=== PATIENT | female | born 1965 | race Hispanic/Latino ===

== ENCOUNTER → 2017-11-03 | Outpatient (CLI) | payer OTHER ==
[~2017-11-03] MED LIST: ACYCLOVIR; GABA-531 PO; MULT-1296 PO; VIT D PO
== END | disposition home or self-care (01) ==
LOC: RAH 12:25
PROVIDERS: ATTEND Physical Medicine & Rehabilitation
DX: M51.17 Intervertebral disc disorders with radiculopathy, lumbosacral region (principal); M47.26 Other spondylosis with radiculopathy, lumbar region
CPT/HCPCS: 72148

== ENCOUNTER 2017-11-29 06:38 | Day surgery (SDC) | payer OTHER ==
[~2017-11-29] VITALS: Ht 157.5 cm; Wt 79.9 kg
[~2017-11-29 06:38] MED LIST changes: -ACYCLOVIR; -GABA-531 PO; -MULT-1296 PO; +SODIUM CHLORIDE 0.9% 1000ML 1,000 ML IV ONE; -VIT D PO
[2017-11-29 06:59] LABS: BASOPHILS % (AUTO) 0.7 % (0.0-5.0); EOSINOPHILS % (AUTO) 4.9 % (0.0-8.0); HEMATOCRIT 43.6 % (36-48); LYMPHOCYTES % (AUTO) 51.8 % (21.0-51.0); MEAN CORPUSCULAR HGB CONC 33.4 g/dL (32.0-36.0); MEAN CORPUSCULAR VOLUME 83.9 fL (79-99); NEUTROPHILS % (AUTO) 35.6 % (40.0-77.0); PLATELET COUNT (AUTO) 238 K/uL (130-400); RED CELL DISTRIBUTION WIDTH 13.1 % (11.0-15.5)
[2017-11-29 07:14] LABS: CREATININE 0.7 mg/dL (0.5-1.5); POTASSIUM 3.9 mmol/L (3.5-5.1)
[2017-11-29 07:15] VITALS: BP 119/64
[2017-11-29] MEDS ORDERED: GABA-531 PO (07:29)
[2017-11-29] MEDS ORDERED: ACYCLOVIR (07:29)
[2017-11-29] MEDS ORDERED: PROPOFOL 10 MG/ML 20ML VIAL IV ONE (08:42)
[2017-11-29 08:49] VITALS: BP 123/100
[2017-12-27] MEDS ORDERED: MULT-1296 PO (11:24)
[2017-12-27] MEDS ORDERED: VIT D PO (11:24)
== END 2017-11-29 09:24 | disposition home or self-care (01) ==
LOC: DAH 06:38
PROVIDERS: ATTEND Surgery
DX: K44.9 Diaphragmatic hernia without obstruction or gangrene (principal); K21.9 Gastro-esophageal reflux disease without esophagitis; I10 Essential (primary) hypertension; E66.09 Other obesity due to excess calories; Z68.31 Body mass index [BMI] 31.0-31.9, adult; Z98.890 Other specified postprocedural states
CPT/HCPCS: 36415; 43235; 80048; 85025; A4606; J2704; J7030

== ENCOUNTER → 2017-12-13 | Outpatient (CLI) | payer OTHER ==
[~2017-12-13] VITALS: Ht 5.1 cm; Wt 81.5 kg
[~2017-12-13] MED LIST changes: +ACYCLOVIR; +GABA-531 PO; +MULT-1296 PO; -SODIUM CHLORIDE 0.9% 1000ML 1,000 ML IV ONE; +VIT D PO
== END ==
LOC: DTH 09:15
PROVIDERS: ATTEND Surgery
DX: E11.9 Type 2 diabetes mellitus without complications (principal); E66.09 Other obesity due to excess calories
CPT/HCPCS: 97802

== ENCOUNTER → 2017-12-27 | Outpatient (CLI) | payer OTHER | END | disposition home or self-care (01) | LOC: DTH 09:52 | PROVIDERS: ATTEND Surgery | DX: E11.9 Type 2 diabetes mellitus without complications (principal); E66.09 Other obesity due to excess calories | CPT/HCPCS: 97803 ==

== ENCOUNTER 2017-12-31 10:30 | Inpatient (IN) | payer OTHER, SELFPAY ==
[2017-12-27 10:57] LABS: EOSINOPHILS % (AUTO) 5.3 % (0.0-8.0); HEMATOCRIT 41.3 % (36-48); LYMPHOCYTES % (AUTO) 44.8 % (21.0-51.0); MEAN CORPUSCULAR HEMOGLOBIN 28.7 pg (27.0-33.0); MEAN CORPUSCULAR HGB CONC 33.8 g/dL (32.0-36.0); MEAN CORPUSCULAR VOLUME 84.9 fL (79-99); MONOCYTES % (AUTO) 8.4 % (3.0-13.0); NEUTROPHILS % (AUTO) 40.5 % (40.0-77.0); PLATELET COUNT (AUTO) 250 K/uL (130-400); RED BLOOD CELL COUNT(AUTO) 4.87 MIL/uL (4.00-5.50); RED CELL DISTRIBUTION WIDTH 13.5 % (11.0-15.5); WHITE BLOOD COUNT (AUTO) 4.3 K/uL (4.8-10.8)
[2017-12-27 10:58] VITALS: BP 135/62
[2017-12-27 11:09] LABS: CREATININE 0.6 mg/dL (0.5-1.5); POTASSIUM 4.3 mmol/L (3.5-5.1)
[2017-12-27 11:39] LABS: PARTIAL THROMBOPLASTIN TIME 28.5 SEC (26.3-35.5); PROTHROMBIN TIME 10.5 SEC (9.6-11.6)
[~2017-12-31] VITALS: Ht 158.8 cm; Wt 79.7 kg
[2018-01-03] VITALS (22 sets, daily range): BP systolic 118–156; BP diastolic 47–79
[2018-01-03] MEDS ORDERED: SUCCINYLCHOLINE 200MG/10ML SYR ONE ×2 (06:47→09:06)
[2018-01-03] MEDS ORDERED: LIDOCAINE PF 2% 5ML ABBOJECT ONE (06:47)
[2018-01-03] MEDS ORDERED: GLYCOPYRROLATE 0.2 MG/ML 5 ML VIAL ONE (06:47)
[2018-01-03] MEDS ORDERED: DEXAMETHASONE SOD PHOSPHATE 10MG/ML 1ML VIAL ONE (06:47)
[2018-01-03] MEDS ORDERED: MIDAZOLAM HCL 1 MG/ML 2ML VIAL ONE (06:48)
[2018-01-03] MEDS ORDERED: PROPOFOL 10 MG/ML 20ML VIAL IV ONE (06:48)
[2018-01-03] MEDS ORDERED: FENTANYL CITRATE PF 50 MCG/1 ML 2ML VIAL ONE ×2 (06:48→08:39)
[2018-01-03] MEDS ORDERED: ROCURONIUM BROMIDE 10MG/1ML 5ML VL ONE ×2 (06:50)
[2018-01-03] MEDS ORDERED: LACTATED RINGERS 1000ML 1,000 ML IV ONE (07:05)
[2018-01-03] MEDS: CEFAZOLIN SODIUM 1 GM VIAL ONE ×2 (07:25→08:30)
[2018-01-03] MEDS ORDERED: BUPIVACAINE/PF 0.5% 30ML VIAL ONE (07:31)
[2018-01-03] MEDS ORDERED: CALDOLOR 800MG+NS 250ML 250 ML IV ONE (08:58)
[2018-01-03] MEDS ORDERED: PHENYLEPHRINE HCL 10 MG/ML 1ML VIAL IV ONE (09:06)
[2018-01-03] MEDS ORDERED: ONDANSETRON HCL MDV 20ML 2 MG/ML VIAL ONE (09:07)
[2018-01-03] MEDS ORDERED: LIDOCAINE HCL 2% JELLY 5 ML ONE (09:17)
[2018-01-03] MEDS ORDERED: LIDOCAINE HCL 4% LTA SOL 4 ML VIAL ONE (09:17)
[2018-01-03] MEDS ORDERED: MORPHINE SULFATE 5 MG/ML VIAL IVP PRN (09:30)
[2018-01-03] MEDS ORDERED: ONDANSETRON HCL 4 MG/2 ML VIAL IVP PRN (09:30)
[2018-01-03] MEDS ORDERED: CEFAZOLIN 2GM / 50 ML 2 GM/50 ML BAG IV SCH (09:30)
[2018-01-03] MEDS ORDERED: MEPERIDINE-PF 25 MG/ML SYG ONE (09:57)
[2018-01-03] MEDS: LACTATED RINGERS 1000ML 1,000 ML IV SCH ×2 (12:42→17:50)
[2018-01-03] MEDS ORDERED: ONDANSETRON HCL MDV 20ML 2 MG/ML VIAL IVP PRN (15:00)
[2018-01-03] MEDS ORDERED: MORPHINE SULFATE 4 MG/1ML SYG ONE (17:31)
[2018-01-03] MEDS: CEFAZOLIN SODIUM 1 GM VIAL IVP SCH ×2 (17:36→17:49)
[2018-01-03] MEDS: FAMOTIDINE/PF 20 MG/2 ML VIAL IV SCH (20:35)
[2018-01-03] MEDS: ENOXAPARIN SODIUM 30 MG/0.3 ML SQ SCH (20:36)
[2018-01-04] VITALS: BP 150/77
[2018-01-04] MEDS ORDERED: CEFAZOLIN SODIUM 1 GM VIAL ONE (03:25)
[2018-01-04 04:00] VITALS: BP 148/72
[2018-01-04 05:38] LABS: BASOPHILS % (AUTO) 0.1 % (0.0-5.0); HEMATOCRIT 43.2 % (36-48); LYMPHOCYTES % (AUTO) 13.1 % (21.0-51.0); MEAN CORPUSCULAR HEMOGLOBIN 28.5 pg (27.0-33.0); MEAN CORPUSCULAR HGB CONC 33.9 g/dL (32.0-36.0); MONOCYTES % (AUTO) 7.4 % (3.0-13.0); NEUTROPHILS % (AUTO) 79.4 % (40.0-77.0); PLATELET COUNT (AUTO) 257 K/uL (130-400); RED BLOOD CELL COUNT(AUTO) 5.14 MIL/uL (4.00-5.50); RED CELL DISTRIBUTION WIDTH 13.7 % (11.0-15.5); WHITE BLOOD COUNT (AUTO) 10.7 K/uL (4.8-10.8)
[2018-01-04 05:43] LABS: CREATININE 0.7 mg/dL (0.5-1.5); POTASSIUM 3.7 mmol/L (3.5-5.1)
[2018-01-04 08:11] VITALS: BP 156/76
[2018-01-04] MEDS ORDERED: DIATR MEGLU/DIATRIZOATE SODIUM 30 ML BOTTLE ONE (09:49)
[2018-01-04] MEDS: ENOXAPARIN SODIUM 30 MG/0.3 ML SQ SCH (11:43)
[2018-01-04] MEDS: FAMOTIDINE/PF 20 MG/2 ML VIAL IV SCH (11:43)
[2018-01-04 11:47] VITALS: BP 138/75
[2018-01-04] MEDS ORDERED: ACETAMINOPHEN-CODEINE ELIXIR 5 ML UDCUP PO PRN (13:45)
[2018-01-04 16:48] VITALS: BP 152/87
[2018-01-04 20:00] VITALS: BP 144/76
== END 2018-01-04 22:10 | disposition home or self-care (01) | DRG 621 ==
LOC: DAHIP 01-03 06:41 → 4CH 01-03 10:43
PROVIDERS: ADMIT Surgery; ATTEND Surgery
PROC: 0DB64Z3 Excision of Stomach, Percutaneous Endoscopic Approach, Vertical (ICD-10-PCS; principal; 2018-01-03 08:18)
PROC: 0BQT0ZZ Repair Diaphragm, Open Approach (ICD-10-PCS; 2018-01-03 08:18)
PROC: 0WJP4ZZ Inspection of Gastrointestinal Tract, Percutaneous Endoscopic Approach (ICD-10-PCS; 2018-01-03 08:18)
DX: E66.01 Morbid (severe) obesity due to excess calories (principal); K21.9 Gastro-esophageal reflux disease without esophagitis; K44.9 Diaphragmatic hernia without obstruction or gangrene; Z68.31 Body mass index [BMI] 31.0-31.9, adult
CPT/HCPCS: 36415; 74240; 80048; 85025; 85610; 85730; 86850; 86900; 86901; 88307; 88342; 94760; A4218; A4606; J0330; J0690; J1100; J1650; J1741; J2001; J2175; J2250; J2270; J2370; J2704; J3010; J3490; J7030; J7120; Q9963

== ENCOUNTER → 2018-01-24 | Outpatient (CLI) | payer OTHER | END | disposition home or self-care (01) | LOC: RAH 09:48 | PROVIDERS: ATTEND Specialist | DX: Z12.31 Encounter for screening mammogram for malignant neoplasm of breast (principal) | CPT/HCPCS: 77067 ==

== ENCOUNTER 2018-02-01 00:53 | Emergency (ER) | payer OTHER ==
[2018-02-01] MEDS ORDERED: IOPAMIDOL-370 100 ML VIAL IV ONE ×2 (01:03→02:44)
[2018-02-01] MEDS ORDERED: KETOROLAC TROMETHAMINE 30MG/ML ONE (01:26)
[2018-02-01] MEDS ORDERED: SODIUM CHLORIDE 0.9% 1000ML 1,000 ML IV ONE (01:26)
[2018-02-01 02:49] LABS: BILIRUBIN,URINE Negative (NEGATIVE); COLOR,URINE Yellow (YELLOW); GLUCOSE, URINE (UA) Negative (NEGATIVE); KETONES,URINE >=160 mg/dL (NEGATIVE); LEUKOCYTE ESTERASE ,URINE Large (NEGATIVE); NITRATE,URINE Negative (NEGATIVE); OCCULT BLOOD,URINE Negative (NEGATIVE); PROTEIN,URINE Trace (NEGATIVE)
[2018-02-01 02:50] LABS: APPEARANCE,URINE SLIGHTLY CLOUDY (CLEAR)
[2018-02-01 02:58] LABS: BACTERIA,URINE Rare /HPF (None Seen); MUCUS,URINE Few LPF (None Seen); RBC,URINE 0-1 /HPF (0-1); SQUAMOUS EPITHELIAL CELL,UR Few /HPF (0-2)
== END 2018-02-01 04:55 | disposition home or self-care (01) ==
LOC: EDH 00:53
DX: S20.219A Contusion of unspecified front wall of thorax, initial encounter (principal); S19.80XA Other specified injuries of unspecified part of neck, initial encounter; E07.9 Disorder of thyroid, unspecified; V49.49XA Driver injured in collision with other motor vehicles in traffic accident, initial encounter; Y93.89 Activity, other specified; Y92.89 Other specified places as the place of occurrence of the external cause; Y99.8 Other external cause status
CPT/HCPCS: 70450; 71260; 72125; 74177; 81001; 93005; 96361; 96374; 99285; J1885; J7030; Q9967 ×2

== ENCOUNTER → 2020-05-07 | Outpatient (CLI) | payer OTHER ==
[~2020-05-07] MED LIST changes: -ACYCLOVIR; -GABA-531 PO; +IOHEXOL-350 75 ML VIAL IV ONE; -MULT-1296 PO; -VIT D PO
== END | disposition home or self-care (01) ==
LOC: RAH 08:28
PROVIDERS: ATTEND Family Medicine
DX: K57.30 Diverticulosis of large intestine without perforation or abscess without bleeding (principal); N20.0 Calculus of kidney; J98.11 Atelectasis; Z90.49 Acquired absence of other specified parts of digestive tract
CPT/HCPCS: 74178; Q9967

== ENCOUNTER → 2021-09-15 | Outpatient (CLI) | payer OTHER ==
[~2021-09-15] MED LIST changes: +ACYCLOVIR; +GABA-531 PO; -IOHEXOL-350 75 ML VIAL IV ONE; +MULT-1296 PO; +VIT D PO
== END | disposition home or self-care (01) ==
LOC: RAH 15:37
PROVIDERS: ATTEND Family Medicine
DX: Z12.31 Encounter for screening mammogram for malignant neoplasm of breast (principal)
CPT/HCPCS: 77067

== ENCOUNTER → 2022-10-09 | Outpatient (CLI) | payer OTHER | END | disposition home or self-care (01) | LOC: RAH 08:29 | PROVIDERS: ATTEND Family Medicine | DX: Z12.31 Encounter for screening mammogram for malignant neoplasm of breast (principal) | CPT/HCPCS: 77067 ==

== ENCOUNTER → 2023-10-21 | Outpatient (CLI) | payer OTHER | END | disposition home or self-care (01) | LOC: RAH 08:18 | PROVIDERS: ATTEND Family Medicine | DX: Z12.31 Encounter for screening mammogram for malignant neoplasm of breast (principal) | CPT/HCPCS: 77067 ==

== ENCOUNTER → 2023-11-10 | Outpatient (CLI) | payer OTHER | END | disposition home or self-care (01) | LOC: RAH 15:02 | PROVIDERS: ATTEND Internal Medicine | DX: D50.9 Iron deficiency anemia, unspecified (principal); M47.815 Spondylosis without myelopathy or radiculopathy, thoracolumbar region; Z90.49 Acquired absence of other specified parts of digestive tract | CPT/HCPCS: 74018 ==

== ENCOUNTER → 2024-02-04 | Outpatient (CLI) | payer OTHER | END | disposition home or self-care (01) | LOC: RAH 07:11 | PROVIDERS: ATTEND Internal Medicine Gastroenterology | DX: R93.3 Abnormal findings on diagnostic imaging of other parts of digestive tract (principal); D50.9 Iron deficiency anemia, unspecified | CPT/HCPCS: 78264; A9541 ==

== ENCOUNTER → 2024-10-23 | Outpatient (CLI) | payer OTHER ==
--- NOTE | 2024-10-23 11:39 | HMCIMG ---
SCREENING MAMMOGRAM REASON: Annual Exam COMPARISON: 10/21/2023 TECHNIQUE: CC and MLO views of the bilateral breasts were performed.CAD was performed as well. FINDINGS: Parenchymal density: The breasts are heterogeneously dense, which may obscure small masses. There are no focal mass lesions. There are no pathologic appearing calcifications. There is no evidence of architectural distortion or skin thickening. IMPRESSION: Normal screening mammogram The patient was entered into a reminder system with a target due date for their next mammogram. BI-RADS CATEGORY 1: NEGATIVE Recommend monthly self breast exam as well as annual clinical examination. A negative x-ray should not delay biopsy if a dominant or clinically suspicious mass is present, since 8-10% of cancers are not identified by mammography. Dense breasts particularly, may obscure an underlying neoplasm. Some of these may be detected clinically and therefore, clinical examination is an essential part of breast evaluation.
== END | disposition home or self-care (01) ==
LOC: RAH 11:05
PROVIDERS: ATTEND Family Medicine
DX: Z12.31 Encounter for screening mammogram for malignant neoplasm of breast (principal); R92.333 Mammographic heterogeneous density, bilateral breasts
CPT/HCPCS: 77067

== ENCOUNTER → 2025-08-24 | Outpatient (CLI) | payer OTHER ==
[~2025-08-24] MED LIST changes: +IBUP-2077 PO; +TAMS-55 PO
--- NOTE | 2025-08-24 17:38 | HMCIMG ---
X-RAY LUMBAR SPINE CLINICAL HISTORY: Back pain. COMPARISON: No prior imaging study available for comparison. TECHNIQUE: Anteroposterior and lateral views of the lumbar spine were obtained. FINDINGS: Loss of normal lumbar lordosis is seen, likely secondary to degenerative changes or paraspinal muscle spasm. Multilevel reduction in intervertebral disc spaces is noted, more pronounced at the L4???L5 and L5???S1 levels, with the L5???S1 level being the most affected. Multilevel anterolateral osteophyte formation is noted along the visualized lumbar vertebral margins. Mild facet joint arthropathy is seen at the lower lumbar levels. Vertebral body heights are maintained. No evidence of fracture, spondylolysis, or spondylolisthesis is seen. Visualized sacroiliac joints appear unremarkable. IMPRESSION: * Multilevel degenerative changes of the lumbar spine, with disc space narrowing and anterolateral osteophyte formation, most pronounced at L5???S1 level. * Loss of lumbar lordosis, likely secondary to degenerative change or muscle spasm. * Mild lower lumbar facet arthropathy. * No evidence of fracture, spondylolysis, or spondylolisthesis. * No prior imaging study available for comparison. /[place]
== END | disposition home or self-care (01) ==
LOC: RAH 14:42
PROVIDERS: ATTEND Internal Medicine
DX: M51.360 Other intervertebral disc degeneration, lumbar region with discogenic back pain only (principal); M48.061 Spinal stenosis, lumbar region without neurogenic claudication; M25.78 Osteophyte, vertebrae; M47.816 Spondylosis without myelopathy or radiculopathy, lumbar region; M40.46 Postural lordosis, lumbar region
CPT/HCPCS: 72100

== ENCOUNTER → 2025-08-31 | Outpatient (CLI) | payer OTHER ==
[2025-08-31 14:00] LABS: CREATININE 0.7 mg/dL (0.5-1.0); GLOMERULAR FILTR. RATE CALC 98.0 mL/min (>90); UREA NITROGEN, BLOOD 15.0 mg/dL (7-18)
== END | disposition home or self-care (01) ==
LOC: LAB 09:20
PROVIDERS: ATTEND Internal Medicine Gastroenterology
DX: R93.41 Abnormal radiologic findings on diagnostic imaging of renal pelvis, ureter, or bladder (principal)
CPT/HCPCS: 36415; 82565; 84520

== ENCOUNTER → 2025-09-14 | Outpatient (CLI) | payer OTHER ==
[~2025-09-14] MED LIST changes: +IOHEXOL-350 75 ML VIAL IV ONE
--- NOTE | 2025-09-15 09:01 | HMCIMG ---
EXAM: CT Abdomen and Pelvis with and without IV contrast CLINICAL HISTORY: Patient presents with abnormal radiologic findings on diagnostic imaging of renal pelvis, ureter, and cholelithiasis, with history of hysterectomy and gastric sleeve surgery. TECHNIQUE: Axial computed tomography images of the abdomen and pelvis with and without intravenous contrast. CONTRAST: Omnipaque 350 75 mL administered intravenously. COMPARISON: None. FINDINGS: LUNG BASES: The lung bases appear clear. No pleural effusions are seen. LIVER: Borderline hepatomegaly. Mild hepatic steatosis. GALLBLADDER AND BILE DUCTS: Status post cholecystectomy. Cystic structure in the gallbladder fossa which may represent gallbladder remnant or focal ductal dilatation. No radioopaque gallstones or ductal stone are seen. PANCREAS: Unremarkable. SPLEEN: Unremarkable. ADRENAL GLANDS: Unremarkable. KIDNEYS, URETERS, AND BLADDER: The kidneys appear within normal limits. Mild right renal pelvis fullness.There is no hydronephrosis or hydroureter. Multiple non-obstructing bilateral renal calculi. No ureteral stones. No hydro process. Parapelvic cysts in the left kidney. STOMACH AND BOWEL: Status post gastric sleeve surgery. Sigmoid and left colonic diverticulosis without features of diverticulitis. Unremarkable appearance of the stomach and bowel otherwise. No evidence of bowel obstruction. No evidence suggesting enteritis or colitis. APPENDIX: The appendix is visualized and appears unremarkable. No evidence of acute appendicitis on CT examination. PERITONEUM: No free fluid. No free air. Mild right pelvic iliopsoas cyst fullness. LYMPH NODES: No lymphadenopathy is evident. REPRODUCTIVE: Status post hysterectomy. Unremarkable as visualized otherwise. VASCULATURE: Atherosclerotic aortic wall calcification. No evidence of abdominal aortic aneurysm. BONES: Spine shows degenerative changes. No aggressive appearing osseous lesion. No acute osseous pathology evident otherwise. Few phleboliths in pelvis. IMPRESSION: Status post cholecystectomy. Cystic structure in the gallbladder fossa which may represent gallbladder remnant or focal ductal dilatation. No radioopaque gallstones or ductal stone are seen. Multiple non-obstructing bilateral renal calculi. No ureteral stones. No hydro process. Parapelvic cysts in the left kidney. No bowel obstruction or inflammation. Sigmoid and left colonic diverticulosis without diverticulitis. Normal appendix. Borderline hepatomegaly with mild hepatic steatosis. Atherosclerotic aortic wall calcification. Degenerative changes in spine /[place]
== END | disposition home or self-care (01) ==
LOC: RAH 07:14
PROVIDERS: ATTEND Internal Medicine Gastroenterology
DX: N20.0 Calculus of kidney (principal); K80.20 Calculus of gallbladder without cholecystitis without obstruction; N28.1 Cyst of kidney, acquired; K57.30 Diverticulosis of large intestine without perforation or abscess without bleeding; K76.0 Fatty (change of) liver, not elsewhere classified; I70.0 Atherosclerosis of aorta; R16.0 Hepatomegaly, not elsewhere classified; N94.89 Other specified conditions associated with female genital organs and menstrual cycle; M47.817 Spondylosis without myelopathy or radiculopathy, lumbosacral region; R93.41 Abnormal radiologic findings on diagnostic imaging of renal pelvis, ureter, or bladder; Z90.49 Acquired absence of other specified parts of digestive tract; Z90.710 Acquired absence of both cervix and uterus
CPT/HCPCS: 74178; Q9967